=== PATIENT | female | born 1965 | race African-American/Black ===

== ENCOUNTER 2023-04-06 12:21 | Emergency (ER) | payer MEDICAID ==
[~2023-04-06] VITALS: Ht 160 cm; Wt 104.5 kg
[2023-04-06 12:39] VITALS: BP 157/89; PULSE 88; RESP 16; TEMP 97.9
[2023-04-06] MEDS ORDERED: LOSA-382 PO (12:41)
[2023-04-06] MEDS ORDERED: HYDR25TA PO (12:41)
[2023-04-06] MEDS ORDERED: HYDR-4527 PO (12:41)
[2023-04-06] MEDS ORDERED: CHOL100062 PO (12:41)
[2023-04-06] MEDS ORDERED: LIDOCAINE 5% TRANSDERMAL PATCH TD ONE (13:45)
[2023-04-06] MEDS ORDERED: IBUPROFEN 600 MG TABLET PO ONE (13:45)
[2023-04-06] MEDS ORDERED: METHOCARBAMOL 500 MG TABLET PO ONE (13:45)
[2023-04-06] MEDS ORDERED: METH-659 PO (14:32)
[2023-04-06] MEDS ORDERED: IBUP-1492 PO (14:32)
[2023-04-06] MEDS ORDERED: LIDO1ADH83 TP (14:33)
== END 2023-04-06 14:46 | disposition home or self-care (01) ==
LOC: EMS 12:21
DX: S29.012A Strain of muscle and tendon of back wall of thorax, initial encounter (principal); S16.1XXA Strain of muscle, fascia and tendon at neck level, initial encounter; I10 Essential (primary) hypertension; Z98.890 Other specified postprocedural states; Z91.040 Latex allergy status; Z88.6 Allergy status to analgesic agent; V49.88XA Car occupant (driver) (passenger) injured in other specified transport accidents, initial encounter; Y93.89 Activity, other specified; Y92.89 Other specified places as the place of occurrence of the external cause; Y99.8 Other external cause status
CPT/HCPCS: 99284; Z7502; Z7610